=== PATIENT | female | born 1995 | race Caucasian/White ===

== ENCOUNTER 2019-09-20 21:09 | Emergency (ER) | END 2019-09-20 22:00 | disposition left against medical advice (07) | LOC: ERS 21:09 | DX: Z53.21 Procedure and treatment not carried out due to patient leaving prior to being seen by health care provider (principal) ==

== ENCOUNTER 2019-09-23 15:08 | Inpatient (IN) | payer SELFPAY ==
[2019-09-23] MEDS ORDERED: Ibuprofen 200 MG TAB ONE (16:14)
[2019-09-23] MEDS ORDERED: traMADol HCl 50 MG TAB ONE (16:15)
[2019-09-23] MEDS ORDERED: Lidocaine 1% w/Epinephrine 1:100K 20 ML VIAL ONE (16:48)
[2019-09-23 17:04] LABS: Hemoglobin 12.4 g/dL (12.0-16.0); Mean Corpuscular HGB CONC 33.8 g/dL (32.0-36.0); Mean Corpuscular Hemoglobin 30.8 pg (27.0-31.0); Mean Corpuscular Volume 91.3 fL (78.0-98.0); Mean Platelet Volume 7.3 fL (7.4-10.4); Platelet Count 190 thou/uL (130-400); RBC Distribution Width 11.9 % (11.5-14.5); Red Blood Cell (RBC) Count 4.03 mill/uL (4.20-5.40); White Blood Cell (WBC) Count 11.9 thou/uL (4.8-10.8)
[2019-09-23] MEDS ORDERED: cefTRIAXone\\ROCEPHIN 1 GM VIAL ONE (17:05)
[2019-09-23] MEDS ORDERED: Cefepime 1 GM VIAL ONE (17:05)
[2019-09-23] MEDS ORDERED: Lidocaine 1% PF 5 ML VIAL ONE (17:06)
[2019-09-23 17:07] LABS: BHCG - Serum Negative (NEGATIVE); Pregs Control Background? CLEAR/WHITE (CLR/WHITE); Pregs Control Bar Appear? YES (CONTROL BAR)
[2019-09-23 17:18] LABS: ALT (SGPT) 11 U/L (8-55); AST (SGOT) 18 U/L (5-34); Albumin 3.6 g/dL (3.5-5.0); Alkaline Phosphatase 65 U/L (40-110); Anion Gap 13 mmol/L (10-20); BUN (Urea Nitrogen) 7 mg/dL (7.0-18.7); Bilirubin, Total 0.5 mg/dL (0.2-1.2); Calc. Creatinine Clearance 0 mL/min (70-130); Calcium 8.5 mg/dL (7.8-10.44); Carbon Dioxide 23 mmol/L (22-29); Chloride 103 mmol/L (98-107); Estimated GFR-MDRD 87; Globulin 2.8 g/dL (2.4-3.5); Glucose 152 mg/dL (70-105); Potassium 3.7 mmol/L (3.5-5.1); Protein, Total 6.4 g/dL (6.0-8.3); Sodium 135 mmol/L (136-145)
[2019-09-23 17:28] LABS: Band 33 % (5-11); Eosinophils 2 % (0-10); Lymphocytes 5 % (21-51); MDiff Complete? YES; Monocytes 4 % (0-10); Neutrophil 54 % (42-75); Platelet Morphology Comment Appears Adequate; Polychromasia SLIGHT = 2-3 cells (100X) (0-2/hpf); Reactive Lymphocytes 2 % (0-10)
[2019-09-23] MEDS ORDERED: Ondansetron PF 4 MG/2 ML Vial IVP PRN (19:27)
[2019-09-23] MEDS ORDERED: Ondansetron ODT 4 MG TAB PO PRN (19:27)
[2019-09-23] MEDS ORDERED: Senokot S 8.6-50 MG TAB PO PRN (19:27)
[2019-09-23] MEDS ORDERED: Calcium Carbonate 500 MG ChewTAB PO PRN (19:27)
[2019-09-23] MEDS ORDERED: Morphine 4 MG/ML VIAL ONE (19:33)
[2019-09-23] MEDS ORDERED: Nicotine 14 MG PATCH TD PRN (21:51)
[2019-09-23] MEDS ORDERED: Ibuprofen 200 MG TAB PO PRN (21:52)
[2019-09-23] MEDS ORDERED: Acetaminophen/Codeine 30-300mg Tablet PO PRN (21:52)
[2019-09-23] MEDS ORDERED: traMADol HCl 50 MG TAB PO PRN (21:52)
[2019-09-23] MEDS: Piperacillin/Tazobactam 3.375 GM in Sodium Chloride 0.9% 100 ML IVPB SCH (21:57)
[2019-09-23] MEDS: Acetaminophen 325 MG TAB PO PRN (21:58)
[2019-09-23] MEDS ORDERED: Vancomycin 1 GM in Premix Bag 1 BAG IVPB SCH (22:00)
[2019-09-23] MEDS: Heparin 5,000 UNITS/ML VIAL SC SCH (22:04)
[2019-09-23 22:07] VITALS: BMI 25.6
--- NOTE | 2019-09-23 23:06 | HP ---
PRIMARY CARE PHYSICIAN: Yoli Donald. CHIEF COMPLAINT: Groin abscess. HISTORY OF PRESENT ILLNESS: The patient is a 24-year-old female who presented to the emergency room with above complaints. Over the last 4 to 5 days, the patient noticed increased swelling along with erythema and tenderness in her left side of the groin. It started as a small pustule that gradually got bigger. This started after recently shaving the area. The patient states that she thought the abscess was due to ingrown hair and plucked it. The swelling progressively got bigger. She also had moderate pain especially on ambulation. She also had fever along with chills. She felt generally weak and fatigued. She presented to the emergency room 3 days ago, however, left the emergency room prior to being seen by our ER physician. In the emergency room, her initial vital signs showed temperature 99 with pulse rate of 118, blood pressure of 107/58 with O2 saturation 100% on room air. She underwent incision and drainage of the abscess. She received ceftriaxone, cefepime, morphine, tramadol, and ibuprofen in the emergency room. PAST MEDICAL HISTORY: 1. Anxiety. 2. Depression. 3. Tobacco dependence. PAST SURGICAL HISTORY: 1. Knee surgery. 2. Tonsillectomy. 3. [place] teeth extraction. ALLERGIES: NO KNOWN DRUG ALLERGIES. CURRENT HOME MEDICATIONS: Reviewed with the patient and none. SOCIAL HISTORY: The patient currently lives at home with her family. Smokes up to one pack a day. Denies any drug use. She has abused methamphetamine in the past. FAMILY HISTORY: Negative for heart disease. REVIEW OF SYSTEMS: All other review of systems were reviewed and were found negative. PHYSICAL EXAMINATION: VITAL SIGNS: As discussed above. GENERAL: A 24-year-old female, ill-appearing, in no apparent distress. Pain controlled. HEENT: Head, atraumatic and normocephalic. Sclerae anicteric. Moist mucous membranes. No oral lesion. NECK: Supple. No JVD appreciated. No carotid bruit. No neck stiffness. LUNGS: Clear to auscultation bilaterally. No wheezing, rales, or rhonchi. HEART: S1 and S2 present. Regular rate and rhythm. Tachycardic. No rubs or gallops. ABDOMEN: Soft, nontender. Bowel sounds present. EXTREMITIES: No edema or calf tenderness. NEUROLOGIC: Grossly nonfocal. Moves all 4 extremities. PSYCHIATRY: Alert, awake, oriented x3. SKIN: Warm and dry. There is dressing noted in the groin. Lymph Nodes: No palpable lymph nodes in the neck. PSYCHIATRY: Alert, awake, oriented x3. NEUROLOGIC: Grossly nonfocal. MUSCULOSKELETAL: No joint swelling or tenderness. LABORATORY FINDINGS: CBC showed WBC 11.9 with hemoglobin 12.4, hematocrit 36.8, platelets of 190. Chemistry showed sodium 135, potassium 3.7, chloride 103, bicarb 23, BUN 7, creatinine 0.8. LFTs in normal range. test was negative. IMPRESSION: 1. Sepsis secondary to groin abscess with cellulitis. 2. Groin cellulitis with abscess, status post incision and drainage. 3. Acute pain secondary to above. 4. Ongoing tobacco abuse. 5. Former methamphetamine user. 6. Depression without any suicidal ideation. 7. Hyponatremia. PLAN: The patient will be monitored on the medical floor. We will start her on vancomycin with Zosyn for anaerobic and gram-negative coverage. Pain control. We will add nicotine patch as needed. IV hydration. Consult Wound Care. We will consider General Surgery consultation based on Wound Care input. She underwent incision and drainage in the emergency room. However, wound culture was not sent. The patient understands the above plan of care. Job ID: [id number]
[2019-09-23] MEDS: Sodium Chloride 0.9% 1,000 ML IV SCH (23:11)
[2019-09-23] MEDS: Ketorolac Tromethamine 30 MG/ML VIAL IVP SCH (23:18)
[2019-09-24] MEDS: Piperacillin/Tazobactam 3.375 GM in Sodium Chloride 0.9% 100 ML IVPB SCH (04:33)
[2019-09-24] MEDS: Acetaminophen 325 MG TAB PO PRN (04:35)
[2019-09-24] MEDS: Sodium Chloride 0.9% 1,000 ML IV SCH ×3 (04:37→17:50)
[2019-09-24] MEDS: Ketorolac Tromethamine 30 MG/ML VIAL IVP SCH ×4 (05:04→23:01)
[2019-09-24 05:59] LABS: #Eosinphils 0.2 thou/uL (0.0-0.7); #Lymphocytes 1.2 thou/uL (1.20-3.40); #Monocytes 0.8 thou/uL (0.11-0.59); #Neutrophils 6.2 thou/uL (1.40-6.50); %Basophils 0.1 % (0.0-1.0); %Eosinophils 2.6 % (0.0-10.0); %Lymphocytes 14.1 % (21.0-51.0); %Neutrophils 74.3 % (42.0-75.0); Hemoglobin 10.8 g/dL (12.0-16.0); Mean Corpuscular HGB CONC 32.9 g/dL (32.0-36.0); Mean Corpuscular Hemoglobin 30.3 pg (27.0-31.0); Mean Corpuscular Volume 92.1 fL (78.0-98.0); Mean Platelet Volume 6.7 fL (7.4-10.4); Platelet Count 161 thou/uL (130-400); RBC Distribution Width 11.9 % (11.5-14.5); Red Blood Cell (RBC) Count 3.55 mill/uL (4.20-5.40); White Blood Cell (WBC) Count 8.4 thou/uL (4.8-10.8)
[2019-09-24 06:34] LABS: ALT (SGPT) 12 U/L (8-55); AST (SGOT) 14 U/L (5-34); Albumin 2.9 g/dL (3.5-5.0); Alkaline Phosphatase 59 U/L (40-110); Anion Gap 8 mmol/L (10-20); BUN (Urea Nitrogen) 9 mg/dL (7.0-18.7); Bilirubin, Total 0.2 mg/dL (0.2-1.2); Calc. Creatinine Clearance 118 mL/min (70-130); Calcium 7.8 mg/dL (7.8-10.44); Carbon Dioxide 26 mmol/L (22-29); Chloride 109 mmol/L (98-107); Estimated GFR-MDRD 87; Globulin 2.2 g/dL (2.4-3.5); Glucose 114 mg/dL (70-105); Potassium 3.4 mmol/L (3.5-5.1); Protein, Total 5.1 g/dL (6.0-8.3); Sodium 140 mmol/L (136-145)
[2019-09-24] MEDS: Heparin 5,000 UNITS/ML VIAL SC SCH (08:02)
--- NOTE | 2019-09-24 08:24 | PDOC.BPN ---
- Brief Progress Note OBGYN Brief Phone Call consultation Informal Phone consult (courtesy consult) Requesting MD: Dr Daniel Pena (Medicine) I reviewed with Dr Daniel Pena (Medicine) the patient's case with him this AM. This patient was admitted for OBS after mons I&D last PM in ED. According to the report, she had a miguel from shaving the mons and that became infected. No DM or past med HX. I have reviewed the care up to this AM with Dr Pena. I have reviewed the images in the EMR under NOTES (wound care). At this time, it is recommended to continue with PO ABX (keflex or augmentin) as I&D already performed. Rec follow up with any OBGYN provider (or FM) on Friday or Friday of next week.
[2019-09-24] MEDS ORDERED: Potassium Chloride 20 MEQ TAB PO SCH (08:30)
[2019-09-24] MEDS: cefTRIAXone\\ROCEPHIN 2 GM in Sodium Chloride 0.9% 100 ML IVPB SCH (09:21)
[2019-09-24] MEDS: Vancomycin 1 GM in Premix Bag 1 BAG IVPB SCH ×2 (10:29→22:53)
[2019-09-24] MEDS ORDERED: Lidocaine 1% w/Epinephrine 1:100K 20 ML VIAL FS PRN (19:25)
[2019-09-24] MEDS ORDERED: HYDROcodone/Acetaminophen 7.5/325 mg Tablet PO PRN ×2 (20:32)
[2019-09-24] MEDS ORDERED: Morphine 4 MG/ML VIAL SLOW IVP PRN (20:33)
[2019-09-24] MEDS ORDERED: Ibuprofen 200 MG TAB PO PRN (22:32)
--- NOTE | 2019-09-25 00:41 | CON ---
DATE OF CONSULTATION: 09/24/2019 CONSULTING PHYSICIAN: Gonzalo Hurt MD REASON FOR CONSULTATION: Inadequately drained left groin abscess. HISTORY OF PRESENT ILLNESS: The patient is a 24-year-old female. She believes she developed an ingrown hair related to shaving around her mons on the left-hand side. She apparently presented to the emergency room three days ago, but did not state to be seen as she had some other concerns. She returned to the emergency room last night, where she was noted to have an obvious abscess in the left groin. This was apparently drained by the emergency room physician. Unfortunately, she had a fairly large abscess and the incision was only about a 1 cm incision on the medial aspect, and the abscess was then packed with Nu Gauze through this tiny incision. The patient was admitted to the hospital and placed on IV antibiotics using ceftriaxone and vancomycin. She was seen by wound care team today and the packing was removed. There was noted to still be copious amounts of purulent material within the wound. This was felt to be inadequately drained and wound care was difficult if not impossible and I was therefore consulted for further evaluation. PAST MEDICAL HISTORY: Anxiety, depression, tobacco dependence, and history of illegal drug abuse. PAST SURGICAL HISTORY: 1. Knee surgery. 2. Tonsillectomy. 3. Tooth extraction. ALLERGIES: NO KNOWN DRUG ALLERGIES. MEDICATIONS: The patient denies any current medications at home. PERSONAL AND SOCIAL HISTORY: She lives with her mother, who was present at bedside. She smokes about a pack of cigarettes per day. She states she drinks alcohol every day and drinks several drinks per day. There is a history of methamphetamine use in the past. The patient currently does not work. FAMILY HISTORY: Noncontributory. REVIEW OF SYSTEMS: Otherwise unremarkable. PHYSICAL EXAMINATION: VITAL SIGNS: She is 5 feet 5 inches tall and weighs about 154 pounds. She is afebrile and has been afebrile since hospitalized. Pulse is in the 80s and blood pressure is 105/65. GENERAL: She is a well-developed, well-nourished, pleasant white female, resting in bed, although obviously uncomfortable on the medical floor. She is alert and oriented x3. Mother is present at bedside. HEAD, EYES, EARS, NOSE, AND THROAT: Unremarkable. NECK: Supple. LUNGS: Clear to auscultation. CARDIAC: Regular rate and rhythm. ABDOMEN: Benign. : She has a small incision on her left groin with an erythematous area extending laterally from this. When I pressed on this erythematous area, a large volume of purulent material was expressed through the incision. LABORATORY DATA: Her CBC at admission revealed a white blood cell count 11.9 with a hemoglobin of 12. Today, her white blood cell count has dropped down to 8.4 with a hemoglobin of 10.8. Her chemistries are unremarkable with minimal electrolyte abnormalities. test is negative. Cultures were apparently not obtained when the incision and drainage was performed. One was obtained today with her wound care evaluation. This reveals gram-positive cocci. It is unlikely that this will grow anything as she has already been on IV antibiotics prior to the culture. ASSESSMENT: The patient with inadequately drained left groin abscess. PLAN: Recommend incision and drainage. The patient had just completed a full meal, and I therefore recommended doing this at bedside with local anesthetic. The patient is understandably upset, asking why she has to have this procedure performed again since she just had it done yesterday. I explained that it is not likely to heal until it is opened appropriately and wound care will be difficult if not impossible. Job ID: [id number]
--- NOTE | 2019-09-25 01:05 | OP ---
DATE OF PROCEDURE: 09/24/2019 PREOPERATIVE DIAGNOSIS: Left groin abscess. POSTOPERATIVE DIAGNOSIS: Left groin abscess. PROCEDURES PERFORMED: Incision and drainage of left groin abscess. ANESTHESIA: 1% lidocaine with epinephrine. INDICATIONS: As above. DESCRIPTION OF PROCEDURE: Informed consent was obtained. The patient was placed in the supine position on the bed on the medical floor. Left groin dressing was removed. Area was cleansed with alcohol. Local anesthetic was infiltrated using buffered 1% lidocaine with epinephrine. Once local anesthetic had been adequately achieved, the wound was examined. It was found to extend laterally at least 5 cm. The overlying skin was then incised allowing visible examination of the entire wound. There was little residual purulence as I had already expressed it before I performed the procedure. I used a gauze to debride the wound and abraded it with peroxide moistened gauze. The wound was then packed with peroxide moistened gauze and dry gauze dress was placed externally. The patient will require daily dressing changes. I suspect she will be stable for discharge home tomorrow. She is clearly not septic. She is going to require wound care for probably two weeks to allow this to heal in. I will check on her tomorrow, but would of course be happy to see her back in my office in about a week to check on the progress of the healing abscess. Mother was instructed that she will be responsible for wound care on this. Job ID: [id number]
[2019-09-25] MEDS: Sodium Chloride 0.9% 1,000 ML IV SCH (05:24)
[2019-09-25] MEDS: Ketorolac Tromethamine 30 MG/ML VIAL IVP SCH ×4 (05:28→23:46)
[2019-09-25] MEDS: cefTRIAXone\\ROCEPHIN 2 GM in Sodium Chloride 0.9% 100 ML IVPB SCH (08:17)
--- NOTE | 2019-09-25 08:59 | PDOC.HOSPP ---
- Subjective Encounter Date: 09/24/19 Encounter Time: 11:30 Subjective: Patient seen and examined for cellulitis. Pain controlled. Feels gen weak. No new complaints. No overnight events - Objective Vital Signs & Weight: Vital Signs (12 hours) Temp Pulse Resp BP Pulse Ox 09/25/19 08:32 94 L 09/25/19 07:37 98.2 F 76 18 116/77 94 L 09/25/19 05:00 98.3 F 74 16 104/67 93 L 09/24/19 23:56 98.2 F 70 18 107/64 94 L Weight Admit Weight 154 lb Weight 154 lb I&O: 09/24/19 09/25/19 09/26/19 06:59 06:59 06:59 Intake Total 1350 4150 Balance 1350 4150 Result Diagrams: 09/24/19 05:52 09/24/19 05:51 Hospitalist ROS - Review of Systems Respiratory: denies: cough, dry, shortness of breath, hemoptysis, SOB with excertion, pleuritic pain, sputum, wheezing, other Cardiovascular: denies: chest pain, palpitations, orthopnea, paroxysmal noc. dyspnea, edema, light headedness, other - Medication Medications: Active Medications Generic Name Dose Route Start Last Admin Trade Name Freq PRN Reason Stop Dose Admin Acetaminophen 650 mg 09/23/19 19:27 09/24/19 04:35 Tylenol PO 650 mg Q4H PRN Administration Headache/Fever/Mild Pain (1-3) Acetaminophen/Codeine Phosphate 1 tab 09/23/19 21:52 09/24/19 19:38 Tylenol #3 PO 1 tab Q4H PRN Administration Moderate Pain (4-6) Vancomycin HCl 1 gm/ Device 200 mls @ 200 mls/hr 09/24/19 10:00 09/24/19 22: 53 IVPB 200 mls 1000,2200 TEJAS Administration Ceftriaxone Sodium 2 gm/ 100 mls @ 200 mls/hr 09/24/19 09:00 09/25/19 08:17 Sodium Chloride IVPB 100 mls Q24HR TEJAS Administration Ketorolac Tromethamine 30 mg 09/24/19 23:59 09/25/19 05:28 Toradol IVP 09/29/19 23:59 30 mg Q6HR TEJAS Administration Tramadol HCl 50 mg 09/23/19 21:52 09/24/19 20:36 Ultram PO 50 mg Q4H PRN Administration Moderate Pain (4-6) - Exam General Appearance: NAD Heart: RRR, no gallops Respiratory: no wheezes, no rales Gastrointestinal: soft, non-tender, normal bowel sounds Extremities: no cyanosis, no clubbing Neurological: no new deficit Hosp A/P - Plan DVT proph w/SCDs 1. Sepsis secondary to groin abscess with cellulitis. s/p I&D in ER 2. Groin cellulitis with abscess, status post incision and drainage. 3. Acute pain secondary to above. 4. Ongoing tobacco abuse. 5. Former methamphetamine user. 6. Depression without any suicidal ideation. 7. Hyponatremia/Hyponatremia PLAN: Cont IV Vancomycin Change Zosyn to Ceftriaxone Cont IVF Replace Potassium Ambulate Wound care Send wound cultures
[2019-09-25 10:13] LABS: Vancomycin, Trough 8.5 ug/mL
[2019-09-25] MEDS: Vancomycin HCl 1.25 GM in Sodium Chloride 0.9% 250 ML 250 ML IVPB SCH ×2 (11:15→23:41)
[2019-09-25] MEDS: 1/2 NS w/KCL 20 mEq 1,000 ML IV SCH ×2 (11:25→23:41)
[2019-09-25] MEDS: Vancomycin 1 GM in Premix Bag 1 BAG IVPB SCH (11:31)
--- NOTE | 2019-09-25 14:02 | PRG ---
DATE OF SERVICE: 09/25/2019 SUBJECTIVE: Ms. Webster is postoperative day #1 from incision and drainage of left groin abscess. This was a repeat procedure from what it had been done inadequately in the emergency room. She has already had the dressing changed by wound care team today. Mother was instructed wound care. Her mother expresses surprise that the dressing change was easier than she anticipated. OBJECTIVE: VITAL SIGNS: She is afebrile, pulse is 90, blood pressure 119/71. GENERAL: The patient is sleeping currently. She was medicated not long ago for her dressing change. Her examination is unchanged. EXTREMITIES: She has an intact dressing in her left groin. LABORATORY DATA: There are no new labs. Cultures show no growth in blood cultures and Staphylococcus growing from the wound culture. Sensitivities have not yet been obtained from that. ASSESSMENT AND PLAN: The patient is stable following incision and drainage of left groin abscess. She may be discharged at any time. I do not believe antibiotics are necessary for this to heal, but if antibiotics are desired, then could always discharge on Bactrim, which would cover the full spectrum of Staphylococcus. I would like to see her back in my office in 1 week for routine followup regarding her abscess. Daily dressing changes will need to be performed in the interim. Job ID: [id number]
--- NOTE | 2019-09-25 18:28 | PDOC.HOSPP ---
- Subjective Encounter Date: 09/25/19 Encounter Time: 15:00 Subjective: Patient seen and examined for Sepsis. s/p repeat I&D yesterday. Pain controlled. No new complaints. No overnight events - Objective Vital Signs & Weight: Vital Signs (12 hours) Temp Pulse Resp BP Pulse Ox 09/25/19 15:49 98.0 F 92 18 122/78 90 L 09/25/19 11:26 98.2 F 90 18 119/71 91 L 09/25/19 08:32 94 L 09/25/19 08:16 94 L 09/25/19 07:37 98.2 F 76 18 116/77 94 L Weight Admit Weight 154 lb Weight 154 lb I&O: 09/24/19 09/25/19 09/26/19 06:59 06:59 06:59 Intake Total 1350 4150 1440 Balance 1350 4150 1440 Result Diagrams: 09/24/19 05:52 09/24/19 05:51 Additional Labs: Microbiology 09/24/19 13:30 Pus Bacterial Culture - Preliminary Staphylococcus aureus 09/23/19 18:14 Venous blood - Right Arm Blood Culture - Preliminary NO GROWTH AT 48 HOURS 09/23/19 17:43 Venous blood - Left Arm Blood Culture - Preliminary NO GROWTH AT 48 HOURS Hospitalist ROS - Review of Systems Respiratory: denies: cough, dry, shortness of breath, hemoptysis, SOB with excertion, pleuritic pain, sputum, wheezing, other Cardiovascular: denies: chest pain, palpitations, orthopnea, paroxysmal noc. dyspnea, edema, light headedness, other Gastrointestinal: reports: nausea. denies: vomiting, abdominal pain, diarrhea, constipation, melena, hematochezia, other - Medication Medications: Active Medications Generic Name Dose Route Start Last Admin Trade Name Freq PRN Reason Stop Dose Admin Acetaminophen 650 mg 09/23/19 19:27 09/24/19 04:35 Tylenol PO 650 mg Q4H PRN Administration Headache/Fever/Mild Pain (1-3) Acetaminophen/Codeine Phosphate 1 tab 09/23/19 21:52 09/24/19 19:38 Tylenol #3 PO 1 tab Q4H PRN Administration Moderate Pain (4-6) Potassium Chloride/Sodium Chloride 1,000 mls @ 75 mls/hr 09/25/19 09:00 09/24 11:25 1/2 Ns W/Kcl 20 Meq IV 09/25/19 23:59 1,000 mls .[id number] TEJAS Administration Vancomycin HCl 1.25 gm/ Sodium 250 mls @ 166.667 mls/hr 09/25/19 11:00 11:15 Chloride IVPB 250 mls 1100,2300 TEJAS Administration Ketorolac Tromethamine 30 mg 09/24/19 23:59 09/25/19 17:56 Toradol IVP 09/29/19 23:59 30 mg Q6HR TEJAS Administration Morphine Sulfate 6 mg 09/24/19 20:33 09/25/19 12:01 Morphine SLOW IVP 6 mg Q12H PRN Administration Breakthrough Pain Ondansetron HCl 4 mg 09/23/19 19:27 09/25/19 16:26 Zofran IVP 4 mg Q6H PRN Administration Nausea/Vomiting Tramadol HCl 50 mg 09/23/19 21:52 09/24/19 20:36 Ultram PO 50 mg Q4H PRN Administration Moderate Pain (4-6) - Exam General Appearance: ill appearing Heart: RRR, no rubs Respiratory: no wheezes, no ronchi Gastrointestinal: non-tender, non-distended Extremities: no cyanosis, no clubbing Neurological: no new deficit Hosp A/P - Plan DVT proph w/SCDs 1. Sepsis secondary to groin abscess. 2. Groin cellulitis with abscess, status post incision and drainage. 3. Acute pain secondary to above. 4. Ongoing tobacco abuse. 5. Former methamphetamine user. 6. Depression without any suicidal ideation. 7. Hyponatremia/Hypokalemia PLAN: Cont IV Vancomycin DC Ceftriaxone DC IVF after this bag Cont wound care DC later today or in AM if stable
[2019-09-25] MEDS: Acetaminophen 325 MG TAB PO PRN (20:09)
[2019-09-26] MEDS: Ketorolac Tromethamine 30 MG/ML VIAL IVP SCH ×2 (05:23→11:11)
--- NOTE | 2019-09-26 09:43 | DIS ---
DATE OF ADMISSION: 09/23/2019 DATE OF DISCHARGE: 09/26/2019 DISCHARGE DISPOSITION: Home. FOLLOWUP: 1. Follow up with primary care physician at [facility] in 1 week. 2. Follow up with Dr. Hiro Aguirre, General Surgery, in 1 week. The patient was seen and examined on the day of discharge. Denies any new complaints. No chest pain, shortness of breath, palpitations, fever, or chills reported. DISCHARGE MEDICATIONS: I discussed with Infectious Disease, Dr. Matamoros, who recommended: 1. Doxycycline and rifampin 1 week every month for 3 consecutive months due to skin colonization with MRSA. 2. Doxycycline 100 mg twice a day 1 week for 3 consecutive months. 3. Rifampin 300 mg twice daily 1 week for 3 consecutive months. 4. Tylenol No. 3 as needed prior to wound dressing. BRIEF HOSPITAL COURSE: The patient is a 24-year-old female who presented to the emergency room with groin abscess. A workup was consistent with sepsis secondary to groin abscess with cellulitis. She underwent incision and drainage in the emergency room. She was evaluated by Wound Care who recommended General Surgery consultation. She underwent incision and drainage at the bedside by General Surgery. The culture from the abscess was consistent with MRSA sensitive to doxycycline and rifampin. Blood cultures remain negative. She was placed on vancomycin with ceftriaxone during this hospital stay. Information on rifampin and doxycycline has been provided to the patient. The family has been educated on wound care. She will follow up with Dr. Aguirre in 1 week. FINAL DIAGNOSES: 1. Sepsis, secondary to groin abscess with cellulitis, status post incision and drainage in the emergency room with repeat incision and drainage by Dr. Aguirre at the bedside. 2. Acute pain secondary to above. 3. Ongoing tobacco abuse. The patient was counseled. 4. Depression. 5. Hyponatremia. 6. Hypokalemia. The patient understands the above plan of care. Job ID: [id number]
--- NOTE | 2019-09-26 10:46 | PRG ---
DATE OF SERVICE: 09/26/2019 SUBJECTIVE: Ms. Webster is postprocedure day #2 following incision and drainage of a large left groin abscess. The cultures have revealed MRSA. Dressings were changed yesterday and she is awaiting dressing change by wound care team today. She tells me she feels much better and is enthusiastic about discharge. I encouraged her to avoid smoking when she goes home and she tells me she plans to stop smoking. I spoke with her regarding wound care and bathing and she understands it is fine to get the incision wet at any time and her mother understands dressing changes. I have asked them to follow up in my office next week, probably on Friday. Discharge orders have been taken care of by the Hospitalist Service. Job ID: [id number]
[2019-09-26] MEDS: Vancomycin HCl 1.25 GM in Sodium Chloride 0.9% 250 ML 250 ML IVPB SCH (11:19)
[2019-09-26 12:42] VITALS: BP 122/68; TEMP 98.6
== END 2019-09-26 11:30 | disposition home or self-care (01) | DRG 872 ==
LOC: ERS 15:08 → OBSVTOIN 18:16 → T4-A 18:16
PROVIDERS: ADMIT Internal Medicine; ATTEND Internal Medicine
PROC: 0H9AXZZ Drainage of Inguinal Skin, External Approach (ICD-10-PCS; principal; 2019-09-23)
PROC: 0H9AXZZ Drainage of Inguinal Skin, External Approach (ICD-10-PCS; 2019-09-24)
DX: A41.02 Sepsis due to Methicillin resistant Staphylococcus aureus (principal); L02.214 Cutaneous abscess of groin; L03.314 Cellulitis of groin; E87.1 Hypo-osmolality and hyponatremia; F31.9 Bipolar disorder, unspecified; F41.9 Anxiety disorder, unspecified; F17.210 Nicotine dependence, cigarettes, uncomplicated
CPT/HCPCS: 36415; 80053; 80202; 83605; 84703; 85025; 87040; 87070; 87077; 87186; 87205; J0692; J0696; J1885; J2001; J2270; J2405; J2543; J3370; J3480; J3490; J7050

== ENCOUNTER 2021-09-07 14:05 | Emergency (ER) | payer OTHER, SELFPAY ==
[2021-09-07] MEDS ORDERED: Acetaminophen 500 MG TAB ONE (14:22)
[2021-09-07 14:40] LABS: #Eosinphils 0.2 thou/uL (0.0-0.7); #Lymphocytes 1.1 thou/uL (1.20-3.40); #Monocytes 0.6 thou/uL (0.11-0.59); #Neutrophils 6.7 thou/uL (1.40-6.50); %Basophils 0.1 % (0.0-1.0); %Eosinophils 1.8 % (0.0-10.0); %Lymphocytes 12.8 % (21.0-51.0); %Monocytes 7.5 % (0.0-10.0); %Neutrophils 77.8 % (42.0-75.0); Hemoglobin 14.7 g/dL (12.0-16.0); Mean Corpuscular HGB CONC 32.7 g/dL (32.0-36.0); Mean Corpuscular Hemoglobin 30.3 pg (27.0-31.0); Mean Corpuscular Volume 92.8 fL (78.0-98.0); Mean Platelet Volume 6.6 fL (7.4-10.4); Platelet Count 229 thou/uL (130-400); RBC Distribution Width 12.2 % (11.5-14.5); Red Blood Cell (RBC) Count 4.85 mill/uL (4.20-5.40); White Blood Cell (WBC) Count 8.6 thou/uL (4.8-10.8)
[2021-09-07 14:49] LABS: BHCG - Serum Negative (NEGATIVE); Pregs Control Background? CLEAR/WHITE (CLR/WHITE); Pregs Control Bar Appear? YES (CONTROL BAR)
[2021-09-07 15:00] LABS: ALT (SGPT) 11 U/L (8-55); AST (SGOT) 15 U/L (5-34); Albumin 4.6 g/dL (3.5-5.0); Alkaline Phosphatase 72 U/L (40-110); Anion Gap 12 mmol/L (10-20); BUN (Urea Nitrogen) 19 mg/dL (7.0-18.7); Bilirubin, Total 1.3 mg/dL (0.2-1.2); Calc. Creatinine Clearance 0 mL/min (70-130); Calcium 9.3 mg/dL (7.8-10.44); Carbon Dioxide 25 mmol/L (22-29); Chloride 103 mmol/L (98-107); Globulin 3.2 g/dL (2.4-3.5); Glucose 82 mg/dL (70-105); Potassium 3.9 mmol/L (3.5-5.1); Protein, Total 7.8 g/dL (6.0-8.3); Sodium 136 mmol/L (136-145)
[2021-09-07] MEDS ORDERED: Ketorolac Tromethamine 30 MG/ML VIAL ONE (15:35)
[2021-09-07 16:19] LABS: Bacteria/HPF None Seen HPF (None Seen); Bilirubin Negative (Negative); Blood, Urine 1+ (Negative); Clarity Clear (Clear); Glucose, Urine (Dipstick) Normal (Negative); Ketone, Urine Negative (Negative); Leukocyte 25 Leu/uL (Negative); Nitrite Negative (Negative); Protein, Urine (Dipstick) Negative (Neg-Trace); Specific Gravity, Urine 1.026 (1.002-1.036); Squamous Epithelial 0-3 HPF (0-3); Urobilinogen Normal mg/dL (Less than 2)
== END 2021-09-07 16:59 | disposition home or self-care (01) ==
LOC: ERS 14:05
DX: B34.9 Viral infection, unspecified (principal); Z20.822 Contact with and (suspected) exposure to COVID-19; F17.210 Nicotine dependence, cigarettes, uncomplicated
CPT/HCPCS: 80053; 81003; 81015; 84703; 85025; 94760; 96374; J1885; U0003; U0005

== ENCOUNTER 2022-05-20 17:21 | Emergency (ER) | payer OTHER, SELFPAY ==
[2022-05-20 18:09] LABS: #Eosinphils 0.1 thou/uL (0.0-0.7); #Lymphocytes 1.4 thou/uL (1.20-3.40); #Monocytes 0.7 thou/uL (0.11-0.59); #Neutrophils 10.1 thou/uL (1.40-6.50); %Basophils 0.1 % (0.0-1.0); %Eosinophils 1.2 % (0.0-10.0); %Lymphocytes 11.6 % (21.0-51.0); %Monocytes 5.7 % (0.0-10.0); %Neutrophils 81.4 % (42.0-75.0); Hemoglobin 13.1 g/dL (12.0-16.0); Mean Corpuscular Hemoglobin 31.1 pg (27.0-31.0); Mean Corpuscular Volume 91.4 fl (78.0-98.0); Mean Platelet Volume 7.2 fL (7.4-10.4); Platelet Count 218 10x3/uL (130-400); RBC Distribution Width 11.9 % (11.5-14.5); Red Blood Cell (RBC) Count 4.22 mill/uL (4.20-5.40); White Blood Cell (WBC) Count 12.4 10x3/uL (4.8-10.8)
[2022-05-20 18:17] LABS: BHCG - Serum Negative (NEGATIVE); Pregs Control Background? CLEAR/WHITE (CLR/WHITE); Pregs Control Bar Appear? YES (CONTROL BAR)
[2022-05-20 18:30] LABS: ALT (SGPT) 11 U/L (8-55); AST (SGOT) 14 U/L (5-34); Albumin 4.3 g/dL (3.5-5.0); Alkaline Phosphatase 66 U/L (40-110); Anion Gap 12 mmol/L (10-20); BUN (Urea Nitrogen) 20 mg/dL (7.0-18.7); Bilirubin, Total 0.7 mg/dL (0.2-1.2); Calc. Creatinine Clearance 0 mL/min (70-130); Calcium 9.3 mg/dL (7.8-10.44); Carbon Dioxide 24 mmol/L (22-29); Chloride 107 mmol/L (98-107); Estimated GFR 79; Globulin 2.8 g/dL (2.4-3.5); Glucose 117 mg/dL (70-105); Potassium 3.7 mmol/L (3.5-5.1); Protein, Total 7.1 g/dL (6.0-8.3); Sodium 139 mmol/L (136-145)
[2022-05-20] MEDS ORDERED: Ketorolac Tromethamine 30 MG/ML VIAL ONE (19:17)
== END 2022-05-20 20:59 | disposition home or self-care (01) ==
LOC: ERS 17:21
DX: L03.115 Cellulitis of right lower limb (principal); L03.019 Cellulitis of unspecified finger; D72.829 Elevated white blood cell count, unspecified; F17.210 Nicotine dependence, cigarettes, uncomplicated; W25.XXXA Contact with sharp glass, initial encounter
CPT/HCPCS: 36415; 71045; 80053; 84703; 85025; 87070; 87077; 87205; 96372; J1885